=== PATIENT | female | born 1995 | race Two or more races ===

== ENCOUNTER 2020-11-17 19:14 | Emergency (ER) | payer MEDICAID, OTHER ==
[~2020-11-17] VITALS: Ht 167.6 cm; Wt 63.5 kg
[2020-11-17 19:53] VITALS: BP 117/71
== END 2020-11-17 23:13 | disposition left against medical advice (07) ==
LOC: EDBD 19:14 → ER 19:18
DX: R11.10 Vomiting, unspecified (principal); R10.9 Unspecified abdominal pain; Z53.21 Procedure and treatment not carried out due to patient leaving prior to being seen by health care provider